=== PATIENT | female | born 1955 ===

== ENCOUNTER 2020-11-07 12:06 | Emergency (ER) | payer MEDICAID ==
[~2020-11-07] VITALS: Ht 175.3 cm; Wt 117.9 kg
[2020-11-07 13:07] VITALS: BP 152/86
== END 2020-11-07 14:22 | disposition home or self-care (01) ==
LOC: ER 12:06
DX: D21.9 Benign neoplasm of connective and other soft tissue, unspecified (principal); F17.210 Nicotine dependence, cigarettes, uncomplicated